=== PATIENT | male | born 1970 | race African-American/Black ===

== ENCOUNTER 2021-02-12 09:05 | Emergency (ER) | payer BC, OTHER ==
--- NOTE | 2021-02-12 10:00 | ER ---
Nurse's Notes [facility] Name: Kaur Montana III Age: 50 yrs Sex: Male : 1970 Arrival Date: 02/12/2021 Time: 09:07 Bed 2 Private MD: Diagnosis: Olecranon bursitis, left elbow Presentation: 02/12 09:30 Chief complaint: Patient states: About two weeks ago pt noticed a bump on Left elbow. vg1 States 'it feels mushy'. Bump appears to be golf ball size. Pt states no pain at this time, but when bumps into things pain is about 3/10. Coronavirus screen: Vaccine status: Patient reports being unvaccinated. Client denies travel out of the [place] in the last 14 days. Ebola Screen: Patient negative for fever greater than or equal to 101.5 degrees Fahrenheit, and additional compatible Ebola Virus Disease symptoms. Initial Sepsis Screen: Does the patient meet any 2 criteria? No. Patient's initial sepsis screen is negative. Does the patient have a suspected source of infection? No. Patient's initial sepsis screen is negative. Risk Assessment: Do you want to hurt yourself or someone else? Patient reports no desire to harm self or others. Onset of symptoms was January 29, 2021. 09:30 Method Of Arrival: Ambulatory 1 09:30 Acuity: CHRISTINA 4 vg1 Triage Assessment: 09:33 General: Appears in no apparent distress. comfortable, Behavior is calm, cooperative. vg1 Pain: Denies pain. Historical: - Allergies: 09:33 No Known Allergies; vg1 - Home Meds: 09:33 None [Active]; vg1 - PMHx: 09:33 None; vg1 - PSHx: 09:33 None; vg1 - Immunization history:: Adult Immunizations up to date, Client reports having NOT received the Covid vaccine. - Social history:: Smoking status: Patient denies any tobacco usage or history of. Screenin:42 Abuse screen: Denies threats or abuse. Denies injuries from another. Nutritional jt3 screening: No deficits noted. Tuberculosis screening: No symptoms or risk factors identified. Fall Risk None identified. Assessment: 09:42 General: Appears in no apparent distress. Behavior is calm, cooperative. Pain: Denies jt3 pain. Derm: Skin temperature is warm Pt. has right elbow edema that is similar looking to bursitis. Denies pain to right elbow. No redness present. Alert and oriented x4. Denies fever or chills. Vital Signs: 09:30 BP 129 / 79; Pulse 55; Resp 16; Temp 98.5; Pulse Ox 100% ; Weight 83.91 kg; Height 5 vg1 ft. 9 in. (175.26 cm); Pain 0/10; 09:30 Body Mass Index 27.32 (83.91 kg, 175.26 cm) vg1 ED Course: 09:07 Patient arrived in ED. ds1 09:33 Triage completed. vg1 09:33 Arm band placed on. vg1 09:39 Vinya Mckeon, RN is Primary Nurse. jt3 09:42 Huber Garcia PA is PHCP. [facility] 09:42 Albert Banerjee MD is Attending Physician. [facility] 09:42 Patient has correct armband on for positive identification. Bed in low position. Call jt3 light in reach. Side rails up X2. 09:42 No provider procedures requiring assistance completed. Patient did not have IV access jt3 during this emergency room visit. No IV needed at this time. 10:00 Ahsan Chang MD is Referral Physician. starr Administered Medications: No medications were administered Outcome: 10:00 Discharge ordered by . [facility] 10:31 Discharged to home ambulatory. jt3 10:31 Condition: good 10:31 Discharge instructions given to patient, Instructed on discharge instructions, Demonstrated understanding of instructions, medications, Prescriptions given X 10:32 Patient left the ED. jt3 Signatures: Huber Garcia PA PA Meghann Lemons ds1 Joleen Hobson RN RN vg1 Vinay Mckeon, RN RN jt3 Corrections: (The following items were deleted from the chart) 09:34 09:33 PSHx: None; vg1 vg1
--- NOTE | 2021-02-12 10:00 | EDPHYS ---
Physician Documentation [facility] Name: Kaur Montana III Age: 50 yrs Sex: Male : 1970 Arrival Date: 02/12/2021 Time: 09:07 Bed 2 Private MD: ED Physician Albert Banerjee HPI: 02/12 09:50 This 50 yrs old Black Male presents to ER via Ambulatory with complaints of Poss Cyst jmm on Elbow. 09:50 The patient or guardian complains of pain. Onset: The symptoms/episode began/occurred jmm gradually, 1 week(s) ago. Modifying factors: The symptoms are alleviated by Rest. This is a 50-year-old male with no chronic medical conditions presents to emergency department with swelling to the left elbow beginning approximately a week ago. Symptoms are worsened as he works throughout the day but swelling does decrease after sleeping in the evening and waking up in the morning. Denies fever. Denies known trauma.. Historical: - Allergies: 09:33 No Known Allergies; vg1 - Home Meds: 09:33 None [Active]; vg1 - PMHx: 09:33 None; vg1 - PSHx: 09:33 None; vg1 - Immunization history:: Adult Immunizations up to date, Client reports having NOT received the Covid vaccine. - Social history:: Smoking status: Patient denies any tobacco usage or history of. ROS: 09:50 Constitutional: Negative for fever, chills, and weight loss, Cardiovascular: Negative jmm for chest pain, palpitations, and edema, Respiratory: Negative for shortness of breath, cough, wheezing, and pleuritic chest pain. 09:50 MS/extremity: Positive for pain, swelling. 09:50 All other systems are negative. Exam: 09:50 Constitutional: This is a well developed, well nourished patient who is awake, alert, jmm and in no acute distress. Head/Face: atraumatic. Eyes: EOMI, no conjunctival erythema appreciated ENT: Moist Mucus Membranes Neck: Trachea midline, Supple Chest/axilla: Normal chest wall appearance and motion. Cardiovascular: Regular rate and rhythm. No edema appreciated Respiratory: Normal respirations, no respiratory distress appreciated Abdomen/GI: Non distended, soft Back: Normal ROM Skin: General appearance color normal 09:50 Musculoskeletal/extremity: Full range of motion appreciated to the left elbow, no bony tenderness is appreciated. Swelling is appreciated which appears consistent with the olecranon bursitis. No induration or erythema appreciated.. 09:50 Skin: Appearance: Color: normal in color. 09:50 Neuro: Orientation: is normal, Mentation: is normal, Memory: is normal. 09:50 Psych: Behavior/mood is pleasant, cooperative. Vital Signs: 09:30 BP 129 / 79; Pulse 55; Resp 16; Temp 98.5; Pulse Ox 100% ; Weight 83.91 kg; Height 5 vg1 ft. 9 in. (175.26 cm); Pain 0/10; 09:30 Body Mass Index 27.32 (83.91 kg, 175.26 cm) vg1 MDM: 09:50 Patient medically screened. [facility] 09:59 Data reviewed: vital signs, nurses notes. Counseling: I had a detailed discussion with [facility] the patient and/or guardian regarding: the historical points, exam findings, and any diagnostic results supporting the discharge/admit diagnosis, the need for outpatient follow up, to return to the emergency department if symptoms worsen or persist or if there are any questions or concerns that arise at home. 17:55 ED course: Patient is alert nontoxic in appearance. Patient is afebrile. Skin was [facility] nonindurated. I do not suspect septic joint. Physical exam is findings consistent with olecranon bursitis.. Administered Medications: No medications were administered Disposition Summary: 02/12/21 10:00 Discharge Ordered Location: Home [facility] Condition: Stable [facility] Diagnosis - Olecranon bursitis, left elbow [facility] Followup: [facility] - With: Ahsan Chang MD - When: 2 - 3 days - Reason: Recheck today's complaints, Continuance of care, Re-evaluation by your physician Discharge Instructions: - Discharge Summary Sheet [facility] - Elbow Bursitis [facility] Forms: - Medication Reconciliation Form [facility] - Thank You Letter [facility] - Antibiotic Education [facility] - Prescription Opioid Use [facility] Prescriptions: - Voltaren 1 % Topical gel - apply 2 gram by TOPICAL route 4 times per day; 1 tube; Refills: 0, Product [facility] Selection Permitted - Prednisone 20 mg Oral Tablet - take 3 tablets by ORAL route once daily for 5 days; 15 tablet; Refills: 0, starr Product Selection Permitted Addendum: 02/13/2021 11:32 Co-signature as Attending Physician, Albert Banerjee MD I agree with the assessment and c diaz plan of care. Signatures: Albert Banerjee MD MD cha Mickail, Joel, PA PA jmm Garcia, Victoria, RN RN vg1 Corrections: (The following items were deleted from the chart) 02/12 09:34 09:33 PSHx: None; vg1 vg1
[2021-02-12 10:38] VITALS: BP 129/79; TEMP 98.5; O2SAT 100
== END 2021-02-12 10:32 | disposition home or self-care (01) ==
LOC: ER 09:05
DX: M70.22 Olecranon bursitis, left elbow (principal)
CPT/HCPCS: 99282